=== PATIENT | female | born 1930 | race Caucasian/White ===

== ENCOUNTER → 2016-09-23 | Outpatient (REF) | payer MEDICARE | LOC: LAB 15:59 | PROVIDERS: ATTEND Family Medicine | DX: Z51.81 Encounter for therapeutic drug level monitoring (principal); Z79.01 Long term (current) use of anticoagulants | CPT/HCPCS: 85610 ==

== ENCOUNTER → 2016-12-12 | Outpatient (REF) | payer MEDICARE ==
[~2016-12-12] MED LIST: AC325T PO; ACET1TAB43 PO; ACET325T38 PO; ALEN70TA47 PO; ALLBEE WITH C; AMIO200T2 PO; ASCO250T8 PO; AZIT500T PO; BENZ200C43 PO; BSP5T PO; BUSP5TAB59 PO; CALC-140 PO; CEFD300C PO; CODE-54 PO; DEXT7.5S PO; DILT180C54 PO; DOCU100C8 PO; Docusate Sodium PO; ESTR0.62 PO; ESTR0.755 PO; ESTR1TAB24 PO; FAMO40TA6 PO; FURO40TA4 PO; GFN600TCR PO; HYDR473S34 PO; IPRA3AMP11 INH; KCL20TCR PO; LEVO750T39 PO; LEVO75TA4 PO; LEVO88TA4 PO; LRT10T PO; LUTE20CA PO; LUTE6CAP2 PO; MAGN400O7 PO; MINE3.5O4 OU; MNTL10T PO; MULT-1034 PO; PANT20TA24 PO; POLY17PO2 PO; PRM25T PO; PROP1DRO OU; SILVER CENTRUM PO; SIME125C PO; SODI88SP5 NSEACH; TR1C15 TOP; TRIA80OI2 TOP; TSSN473B PO; VITA1CAP16 PO; VITA200C5 PO; WARF2.5T PO; WRF1T PO; ZLP5T PO; [UNRECOGNIZED DRUG - CODE] PO; [UNRECOGNIZED DRUG - CODE] PO; [UNRECOGNIZED DRUG - CODE] TOP; [UNRECOGNIZED DRUG - OTHER]
[2016-12-12 11:43] LABS: ANION GAP 14.9 MEQ/L (3-15)
== END ==
LOC: LAB 11:03
PROVIDERS: ATTEND Nurse Practitioner Family
DX: I10 Essential (primary) hypertension (principal)
CPT/HCPCS: 80048

== ENCOUNTER → 2016-12-16 | Outpatient (REF) | payer MEDICARE ==
[2016-12-16 15:22] LABS: BASOPHILS % (AUTO) 0 % (0-2); EOSINOPHILS # (AUTO) 0.6 10^3uL; EOSINOPHILS % (AUTO) 8 % (0-4); LYMPHOCYTES # (AUTO) 2.8 X10^3; MEAN CORPUSCULAR HGB CONC 33.4 g/dL (31.0-37.0); MEAN CORPUSCULAR VOLUME 97 FL (80-100); MEAN PLATELET VOLUME 10.3 FL (6.0-9.5); MONOCYTES # (AUTO) 0.9 X10^3; MONOCYTES % (AUTO) 13 % (3-11); NEUTROPHILS # (AUTO) 2.9 X10^3; NEUTROPHILS % (AUTO) 40 % (51-67); PLATELET COUNT 242 10^3uL (150-450); WHITE BLOOD COUNT 7.14 10^3uL (4.0-11.0)
[2016-12-16 15:23] LABS: MEAN CORPUSCULAR HEMOGLOBIN 32.5 PG (26.0-34.0)
[2016-12-16 15:28] LABS: ANION GAP 14.9 MEQ/L (3-15)
== END ==
LOC: LAB 15:13
PROVIDERS: ATTEND Nurse Practitioner Family
DX: R05 Cough (principal)
CPT/HCPCS: 80048; 83880; 85025

== ENCOUNTER → 2016-12-16 | Outpatient (CLI) | payer MEDICARE ==
--- NOTE | 2016-12-16 20:38 | Diagnostic Imaging Report ---
EXAM: INDICATION: FINDINGS: The aorta is tortuous. There are COPD changes with hyperinflation. There is no focal infiltrate or pneumothorax or pleural fluid. IMPRESSION: COPD changes. No focal infiltrate or pleural fluid. Dictated on workstation # [id number]
== END ==
LOC: RAD 15:26
PROVIDERS: ATTEND Nurse Practitioner Family
DX: R05 Cough (principal)
CPT/HCPCS: 71020